=== PATIENT | female | born 1990 | race African-American/Black ===

== ENCOUNTER 2017-05-23 18:15 | Emergency (ER) | payer OTHER ==
[2017-05-23 18:27] VITALS: TEMP 99.7; BMI 25.4
--- NOTE | 2017-05-23 19:11 | PDOC ---
History of Present Illness - General Chief Complaint: Cold Symptoms Stated Complaint: PAIN Time Seen by Provider: 05/23/17 18:34 History Source: Patient Exam Limitations: No Limitations - History of Present Illness Initial Comments: 05/23/17 19:07 Patient is a 26-year-old female, otherwise healthy presents emergency department for generalized aches and pains, fever which started this morning. Patient states she woke up experiencing lower abdominal pain, denies urinary symptoms. Denies any headache, no nausea vomiting or diarrhea, no dysuria or hematuria. Patient reports having intermittent fevers over the last 3 months one per month was seen by her PMD told it was viral. Eyes any chest pain or shortness of breath, no respiratory symptoms. Took Motrin last at 5 PM. Denies neck pain, + headache. Past Medical History: Denies. Allergies: No known allergies Medications: None Family History: Non-contributory Social History: Denies smoking, alcohol use, or IVDU Vital signs on arrival are notable for pulse of 96. Review of Systems GENERAL/CONSTITUTIONAL: Fever, chills, generalized weakness No weight change. HEAD, EYES, EARS, NOSE AND THROAT: No change in vision. No ear pain or discharge. No sore throat. CARDIOVASCULAR: No chest pain or shortness of breath. RESPIRATORY: No cough, wheezing, or hemoptysis. GASTROINTESTINAL: No nausea, vomiting, diarrhea or constipation. No rectal bleeding. Mid lower abdominal pain GENITOURINARY: No dysuria, frequency, or change in urination. MUSCULOSKELETAL: No joint or muscle swelling or pain. No neck or back pain. SKIN : No rash or easy bruising. NEUROLOGIC: No headache, vertigo, loss of consciousness, or loss of sensation. PSYCHIATRIC: No depression or anxiety. ENDOCRINE: No increased thirst. No abnormal weight change. HEMATOLOGIC/LYMPHATIC: No anemia, easy bleeding, or history of blood clots. ALLERGIC/IMMUNOLOGIC: No hives or skin allergy. No latex allergy. Physical Exam: GENERAL: The patient is awake, alert, and fully oriented, in no acute distress. HEAD: Normal with no signs of trauma. EYES: Pupils equal, round and reactive to light, extraocular movements intact, sclera anicteric, conjunctiva clear. ENT: Ears normal, nares patent, oropharynx clear without exudates. Moist mucous membranes. No uvula deviation NECK: Normal range of motion, supple without lymphadenopathy, JVD, or masses. LUNGS: Breath sounds equal, clear to auscultation bilaterally. No wheezes, and no crackles. HEART: Regular rate and rhythm, normal S1 and S2 without murmur, rub or gallop. ABDOMEN: Soft, tender mid-lower abdomen normoactive bowel sounds. No guarding, no rebound. No masses. No bruising or abrasions MUSCULOSKELETAL: Normal range of motion, no edema. No clubbing or cyanosis. No cords, erythema, or tenderness. No CVA Tenderness with fist. NEUROLOGICAL: Cranial nerves II through XII grossly intact. Normal speech, normal gait. SKIN: Warm, Dry, normal turgor, no rashes or lesions noted. 05/23/17 20:15 Past History - Past Medical History Allergies/Adverse Reactions: Allergies Allergy/AdvReac Type Severity Reaction Status Date / Time peanut Allergy Swelling Verified 05/23/17 18:27 sunflower seed Allergy Swelling Verified 05/23/17 18:27 Home Medications: Ambulatory Orders Albuterol Sulfate Inhaler - [Ventolin Hfa Inhaler -] 1 - 2 inh PO Q4H #1 inhaler 10/19/15 Promethazine HCl/Codeine [Prometh-Codein 6.25-10 mg/5 ml] 5 ml PO TID PRN #100 syrup 10/19/15 Other medical history: NONE - Immunization History Immunization Up to Date: Yes - Psycho/Social/Smoking Cessation Hx Anxiety: No Suicidal Ideation: No Smoking History: Never smoked Hx Alcohol Use: No Drug/Substance Use Hx: No Substance Use Type: None *Physical Exam - Vital Signs Last Vital Signs Temp Pulse Resp BP Pulse Ox 99.7 F H 97 H 20 118/76 99 05/23/17 18:24 05/23/17 18:24 05/23/17 18:24 05/23/17 18:24 05/23/17 18:24 Medical Decision Making - Medical Decision Making 05/23/17 20:19 A/P: Patient with mid lower abdominal pain, fever which started this a.m. Current temperature is 99. We will send urine analysis urine culture and urine . Laboratory Tests 05/23/17 18:59 Urine Color Ltyellow Urine Appearance Clear Urine pH 5.0 Ur Specific [place] Pending Urine Protein Negative Urine Glucose (UA) Negative Urine Ketones Negative Urine Blood Negative Urine Nitrite Negative Urine Bilirubin Negative Urine Urobilinogen Negative Ur Leukocyte Esterase Negative Urine HCG, Qual Negative Patient's urine is negative. No evidence of UTI. Case discussed with BALA Cunningham I am signing this patient out to my colleague: BALA Cunningham In brief, this patient is being seen in the ED for a chief complaint of: Fever , abdominal pain I have completed the initial assessment interview note and have ordered: Urinalysis, urine culture and urine I have reviewed the following results: Urinalysis, because it is negative, patient requires further workup will send patient to main emergency department for higher level of care. Plan for disposition is as follows: Pending
[2017-05-23 19:29] LABS: URINE APPEARANCE CLEAR; URINE BILIRUBIN NEGATIVE (NEGATIVE); URINE BLOOD NEGATIVE (NEGATIVE); URINE COLOR LTYELLOW; URINE GLUCOSE (UA) NEGATIVE (NEGATIVE); URINE KETONE NEGATIVE (NEGATIVE); URINE LEUK ESTERASE NEGATIVE (NEGATIVE); URINE NITRITE NEGATIVE (NEGATIVE); URINE PROTEIN NEGATIVE (NEGATIVE); URINE UROBILINOGEN NEGATIVE mg/dL (0.2-1.0)
[2017-05-23 20:53] LABS: BASOPHIL 0.4 % (0-2.0); EOSINOPHIL 0.3 % (0-4.5); MCH 30.5 pg (25.7-33.7); MCHC 33.4 g/dl (32.0-36.0); MEAN CELL VOLUME 91.4 fl (80-96); MEAN PLT VOLUME 9.1 fl (7.5-11.1); PLATELET COUNT 252 K/MM3 (134-434); RDW 12.3 % (11.6-15.6); WHITE BLOOD COUNT 8.5 K/mm3 (4.0-10.0)
--- NOTE | 2017-05-23 21:15 | PDOC ---
History of Present Illness - General Chief Complaint: Cold Symptoms Stated Complaint: PAIN Time Seen by Provider: 05/23/17 18:34 - History of Present Illness Initial Comments: 05/23/17 21:10 CHIEF COMPLAINT: abdominal pain HISTORY OF PRESENT ILLNESS: 26 yo F with no PMH transferred to main ED from fast track with abdominal pain x 1 day. Patient states the pain is 10/10 and has worsened over the last 24 hours. Patient reports that she vomited twice yesterday but has not vomited today and denies any diarrhea or rectal bleeding. She reports a fever of 101.9F yesterday. She reports that she has one sexual partner and has had unprotected sex. She denies any history of STDs, her LMP was last week. In fast track patient had negative UA. PAST MEDICAL HISTORY: Denies past medical history FAMILY HISTORY: Denies SOCIAL HISTORY: Denies tobacco, alcohol, illicit drug use. SURGICAL HISTORY: Denies ALLERGIES: peanut, sunflower seed REVIEW OF SYSTEMS General/Constitutional: Fever yesterday. Denies weakness, weight change. HEENT: Denies change in vision. Denies ear pain or discharge. Denies sore throat. Cardiovascular: Denies chest pain or shortness of breath. Respiratory: Denies cough, wheezing, or hemoptysis. Gastrointestinal: Abdominal discomfort x 1 day,vomiting yesterday. Denies diarrhea or constipation. Denies rectal bleeding. Genitourinary: Denies dysuria, frequency, or change in urination. Musculoskeletal: Denies joint or muscle swelling or pain. Denies neck or back pain. Skin and breasts: Denies rash or easy bruising. Neurologic: Denies headache, vertigo, loss of consciousness, or loss of sensation. PHYSICAL EXAM General Appearance: Tearful, anxious-appearing. Appropriately dressed. HEENT: EOMI, PERRLA. Neck: Supple. Trachea midline. No tenderness, rigidity, carotid bruit, stridor , lymphadenopathy, or thyromegaly. Respiratory/Chest: Lungs CTAB. Cardiovascular: RRR. S1, S2. Gastrointestinal/Abdominal: Tenderness on palpation to mid and right lower abdomen. Normal bowel sounds. Abdomen soft, non-distended. No tenderness or rebound tenderness. No organomegaly, pulsatile mass, guarding, hernia, hepatomegaly, splenomegaly. Lymphatic: No adenopathy, tenderness. Musculoskeletal/Extremities: Normal inspection. FROM of all extremities, normal capillary refill. Pelvis Stable. No CVA tenderness. No tenderness to extremities, pedal edema, swelling, erythema or deformity. Integumentary: Appropriate color, dry, warm. No cyanosis, erythema, jaundice or rash Neurologic: fudge candy maker II-XII intact. Fully oriented, alert. Appropriate mood/affect. Motor strength 5/5. No appreciable EOM palsy, facial droop or sensory deficit. Past History - Past Medical History Allergies/Adverse Reactions: Allergies Allergy/AdvReac Type Severity Reaction Status Date / Time peanut Allergy Swelling Verified 05/23/17 18:27 sunflower seed Allergy Swelling Verified 05/23/17 18:27 Home Medications: Ambulatory Orders Ibuprofen [Motrin -] 600 mg PO TID #21 tablet 05/23/17 Other medical history: NONE - Immunization History Immunization Up to Date: Yes - Psycho/Social/Smoking Cessation Hx Anxiety: No Suicidal Ideation: No Smoking History: Never smoked Hx Alcohol Use: No Drug/Substance Use Hx: No Substance Use Type: None *Physical Exam - Vital Signs Last Vital Signs Temp Pulse Resp BP Pulse Ox 99.7 F H 97 H 20 118/76 99 05/23/17 18:24 05/23/17 18:24 05/23/17 18:24 05/23/17 18:24 05/23/17 18:24 ED Treatment Course - LABORATORY CBC & Chemistry Diagram: 05/23/17 20:49 05/23/17 20:49 - ADDITIONAL ORDERS Additional order review: Laboratory Results 05/23/17 18:59 Urine Color Ltyellow Urine Appearance Clear Urine pH 5.0 Urine Protein Negative Urine Glucose (UA) Negative Urine Ketones Negative Urine Blood Negative Urine Nitrite Negative Urine Bilirubin Negative Urine Urobilinogen Negative Ur Leukocyte Esterase Negative Urine HCG, Qual Negative 05/23/17 20:49 RBC 4.17 MCV 91.4 MCHC 33.4 RDW 12.3 MPV 9.1 Neutrophils % 76.0 Lymphocytes % 13.9 Monocytes % 9.4 Eosinophils % 0.3 Basophils % 0.4 - RADIOLOGY Radiology Studies Ordered: Category Date Time Status PELVIS(OTHER) US [US] Stat Ultrasound 05/23/17 20:37 Ordered TRANSVAGINAL ULTRASOUND US [US] Stat Ultrasound 05/23/17 20:59 Ordered Medical Decision Making - Medical Decision Making 05/23/17 21:15 26 yo F with no PMH transferred to main ED from fast track with abdominal pain x 1 day. -CBC, CMP, lipase -TV and pelvic US 05/23/17 22:49 TV US suggestive of fibroids. -30 mg Toradol Patient reassessed, states her pain has resolved at this time. Advised patient to take medication as prescribed and follow up with [facility] within the week. Advised patient of signs and symptoms for return to ED. Patient verbalized understanding and agrees to plan. *DC/Admit/Observation/Transfer Diagnosis at time of Disposition: Leiomyoma - Discharge Dispostion Disposition: HOME Condition at time of disposition: Improved Admit: No - Prescriptions Prescriptions: Ibuprofen [Motrin -] 600 mg PO TID #21 tablet - Referrals Referrals: Mehdi Desir MD [Primary Care Provider] - - Patient Instructions Printed Discharge Instructions: DI for Uterine Fibroids Additional Instructions: Please follow up with your town planner this week as discussed. If you develop any new pain, vaginal bleeding, fever unrelieved by Motrin, persistent vomiting , or any new or worsening symptoms, please return to the ER.
[2017-05-23 21:27] LABS: ALBUMIN 3.6 g/dl (3.4-5.0); ANION GAP 5 (8-16); BILIRUBIN,TOTAL 0.6 mg/dL (0.2-1.0); CO2 27 mmol/L (21-32); CREATININE 0.9 mg/dL (0.55-1.02); GLUCOSE,RANDOM 83 mg/dL (74-106); SGOT/AST 13 U/L (15-37); SGPT/ALT 14 U/L (12-78); TOT PROT 7.2 g/dl (6.4-8.2)
[2017-05-23 21:28] LABS: ALK PHOS 45 U/L (45-117)
--- NOTE | 2017-05-23 21:28 | PDOC ---
*Physical Exam - Vital Signs Last Vital Signs Temp Pulse Resp BP Pulse Ox 99.7 F H 97 H 20 118/76 99 05/23/17 18:24 05/23/17 18:24 05/23/17 18:24 05/23/17 18:24 05/23/17 18:24 ED Treatment Course - LABORATORY CBC & Chemistry Diagram: 05/23/17 20:49 05/23/17 20:49 - ADDITIONAL ORDERS Additional order review: Laboratory Results 05/23/17 18:59 Urine Color Ltyellow Urine Appearance Clear Urine pH 5.0 Urine Protein Negative Urine Glucose (UA) Negative Urine Ketones Negative Urine Blood Negative Urine Nitrite Negative Urine Bilirubin Negative Urine Urobilinogen Negative Ur Leukocyte Esterase Negative Urine HCG, Qual Negative 05/23/17 20:49 RBC 4.17 MCV 91.4 MCHC 33.4 RDW 12.3 MPV 9.1 Neutrophils % 76.0 Lymphocytes % 13.9 Monocytes % 9.4 Eosinophils % 0.3 Basophils % 0.4 Medical Decision Making - Medical Decision Making 05/23/17 21:27 agree with care from BALA Cunningham *DC/Admit/Observation/Transfer Diagnosis at time of Disposition: Leiomyoma - Discharge Dispostion Disposition: HOME Condition at time of disposition: Improved - Prescriptions Prescriptions: Ibuprofen [Motrin -] 600 mg PO TID #21 tablet - Referrals Referrals: Mehdi Desir MD [Primary Care Provider] - - Patient Instructions Printed Discharge Instructions: DI for Uterine Fibroids Additional Instructions: Please follow up with your sand slinger operator this week as discussed. If you develop any new pain, vaginal bleeding, fever unrelieved by Motrin, persistent vomiting , or any new or worsening symptoms, please return to the ER.
[2017-05-23] MEDS ORDERED: KETOROLAC TROMETHAMINE 30 MG/1 ML VIAL IVPUSH ONE (22:06)
[2017-05-23] MEDS ORDERED: KETOROLAC TROMETHAMINE 30 MG/1 ML VIAL ONE (22:15)
[2017-05-23 22:59] VITALS: BP 133/59; PULSE 79
== END 2017-05-23 23:00 | disposition home or self-care (01) ==
LOC: JERFT 18:15 → JER 18:15
PROC: 3E0F7GC Introduction of Other Therapeutic Substance into Respiratory Tract, Via Natural or Artificial Opening (ICD-10-PCS; principal; 2017-05-23)
PROC: 3E0333Z Introduction of Anti-inflammatory into Peripheral Vein, Percutaneous Approach (ICD-10-PCS; 2017-05-23)
DX: D21.9 Benign neoplasm of connective and other soft tissue, unspecified (principal)
CPT/HCPCS: 36415; 76830-TC; 76856-TC; 80053; 81003; 83690; 84703; 85025; 87086; 94640; 96374; 99282-25

== ENCOUNTER 2019-10-19 23:49 | Emergency (ER) | payer OTHER ==
[2019-10-20 00:03] VITALS: BP 133/79; PULSE 66; TEMP 97.4; BMI 27.3
--- NOTE | 2019-10-20 00:48 | PDOC ---
Post Exposure HPI - General History Source: Patient Exam Limitations: No Limitations - History of Present Illness Initial Comments: 10/20/19 00:38 Patient is a 29-year-old female with no pmhx here with c/o of needle stick to the left middle finger at about 2320 today. Patient states this was a small bore insulin needle of her coworker. States that the coworker claims that she has no viral illnesses, However patient was instructed to come to the ED by the nursing staff. She states the the initial injury she bleed the area and wiped with alcohol swabs. LMP: 09/25/2019 PMD: Dr. Zarate PMHX: neg PSOCHX: neg etoh, cig, drug ALL: NKDA GENERAL/CONSTITUTIONAL: [No fever or chills. No weakness. No weight change.] RESPIRATORY: [No cough, wheezing, or hemoptysis.] MUSCULOSKELETAL: [No joint or muscle swelling or pain. No neck or back pain.] SKIN AND BREASTS: [No rash or easy bruising.] NEUROLOGIC: [No headache, vertigo, loss of consciousness, or loss of sensation.] ALLERGIC/IMMUNOLOGIC: [No hives or skin allergy. No latex allergy.] GENERAL: [The patient is awake, alert, and fully oriented, in no acute distress. ] EYES: [Pupils equal, round and reactive to light, extraocular movements intact, sclera anicteric, conjunctiva clear.] NECK: [Normal range of motion, no JVD, or masses.] LUNGS: [Breath sounds equal, clear to auscultation bilaterally. No wheezes, and no crackles.] HEART: [Regular rate and rhythm, normal S1 and S2 without murmur, rub.] EXTREMITIES: [Normal range of motion, no edema. Left middle finger with mild erythema to the dorsum, ulnar aspect of distally. (+)tenderness to plap.] NEUROLOGICAL: [Cranial nerves II through XII grossly intact. Normal speech, normal gait.] PSYCH: [Normal mood, normal affect.] SKIN: [Warm, Dry, normal turgor, no rashes or lesions noted.] <Deepa Richmond - Last Filed: 10/20/19 01:14> <Dilan Shepard - Last Filed: 10/20/19 04:16> - General Chief Complaint: Blood/Body Fluid Exposure SJR Stated Complaint: LEFT MIDDLE FINGER/INJURY Time Seen by Provider: 10/20/19 00:30 Past History - Past Medical History COPD: No - Immunization History Immunization Up to Date: Yes - Psycho Social/Smoking Cessation Hx Smoking History: Never smoked Hx Alcohol Use: No Drug/Substance Use Hx: No Substance Use Type: None <Deepa Richmond - Last Filed: 10/20/19 01:14> <Dilan Shepard - Last Filed: 10/20/19 04:16> - Past Medical History Allergies/Adverse Reactions: Allergies Allergy/AdvReac Type Severity Reaction Status Date / Time peanut Allergy Swelling Verified 05/23/17 18:27 sunflower seed Allergy Swelling Verified 05/23/17 18:27 Home Medications: Ambulatory Orders Ibuprofen [Motrin -] 600 mg PO TID #21 tablet 05/23/17 General Medical PMHX - Other General PMHX Angina: No <Deepa Richmond - Last Filed: 10/20/19 01:14> *Physical Exam - Vital Signs Last Vital Signs Temp Pulse Resp BP Pulse Ox 97.4 F L 66 16 133/79 96 10/19/19 23:59 10/19/19 23:59 10/19/19 23:59 10/19/19 23:59 10/19/19 23:59 <Deepa Richmond - Last Filed: 10/20/19 01:14> - Vital Signs Last Vital Signs Temp Pulse Resp BP Pulse Ox 97.4 F L 66 16 133/79 96 10/19/19 23:59 10/19/19 23:59 10/19/19 23:59 10/19/19 23:59 10/19/19 23:59 <Dilan Shepard - Last Filed: 10/20/19 04:16> Medical Decision Making - Medical Decision Making 10/20/19 00:38 Patient is a 29-year-old female with no pmhx here with c/o of needle stick to the left middle finger at about 2320 today. Patient states this was a small bore insulin needle of her coworker. States that the coworker claims that she has no viral illnesses, However patient was instructed to come to the ED by the nursing staff. She states the the initial injury she bleed the area and wiped with alcohol swabs. LMP: 09/25/2019 risk of HIV discussed with patient on MD calc risk is 0.0001%. However HIV prophylaxis offered but refused currently. Offered HIV testing but since we have no rapid testing in the hospital will go to her primary care doctor. We will give tetanus update and discharge. I discussed the physical exam findings, ancillary test results and final diagnoses with the patient. I answered all of the patient's questions. The patient was satisfied with the care received and felt comfortable with the discharge plan and treatment plan. The Patient agrees to follow up with the primary care physician within 24-72 hours. <Deepa Richmond - Last Filed: 10/20/19 01:14> - Medical Decision Making 10/20/19 04:16 I reviewed the case of the mid-level practitioner and was available for consultation while in the emergency department <Dilan Shepard - Last Filed: 10/20/19 04:16> Discharge - Discharge Information Problems reviewed: Yes <Deepa Richmond - Last Filed: 10/20/19 01:14> <Dilan Shepard - Last Filed: 10/20/19 04:16> - Discharge Information Clinical Impression/Diagnosis: Needlestick injury accident with exposure to body fluid Condition: Good Disposition: HOME - Follow up/Referral - Patient Discharge Instructions Patient Printed Discharge Instructions: How to Handle Body Fluid Exposure -- Non-Healthcare Worker (At Home, [facility] DI for Accidental Exposure to Body Fluids Additional Instructions: Your Discharge Instructions: You must call primary care physician within 24 hours to arrange follow-up. Return to the Emergency Department with any new, persistent or worsening symptoms, for fever, chills, SOB, dizziness or any other concerning changes that may occur. You have received a tetanus vaccine today. - Post Discharge Activity Work/Back to School Note: Back to Work
[2019-10-20] MEDS ORDERED: TETANUS AND DIPHTHERIA TOXOID 0.5 ML DISP.SYRIN IM ONE (00:49)
== END 2019-10-20 01:36 | disposition home or self-care (01) ==
LOC: JER 23:49
PROC: 3E0234Z Introduction of Serum, Toxoid and Vaccine into Muscle, Percutaneous Approach (ICD-10-PCS; principal; 2019-10-19)
DX: Z77.21 Contact with and (suspected) exposure to potentially hazardous body fluids (principal); W22.8XXA Striking against or struck by other objects, initial encounter; Y93.89 Activity, other specified; Y92.89 Other specified places as the place of occurrence of the external cause; Y99.0 Civilian activity done for income or pay; Z91.010 Allergy to peanuts; Z91.018 Allergy to other foods
CPT/HCPCS: 99282-25